=== PATIENT | female | born 1960 | race Caucasian/White ===

== ENCOUNTER → 2017-05-02 | Outpatient (CLI) | payer BC ==
[~2017-05-02] MED LIST: ASPIRIN81 M1 PO; FISH OIL500 M1 PO; LIPITOR PO; MULTI-DAY VITAM1 TAB PO; NORVASC PO; SYNTHROID112 MCG PO
--- NOTE | ~2017-05-02 | MY29 ---
[facility] A Service of [facility] RADIOLOGY TEXT RESULTS PATIENT: VANNESA PIMENTEL LOCATION: [facility] : 62 UNIT #: [id number] AGE: [address]: Rich Carr MD SEX: F ORDER DR: [id number] [facility]. [place], [place] [address] [id number] O MR#: [id number] #: [id number] NAME: VANNESA PIMENTEL : 1960 SEX: F STUDY DATE/TIME: 05/02/2017 7:58 UNIT: [facility] ROOM: STUDY DESCRIPTION: [facility] SCREENING W/ CAD BILAT Attending Physician: Rich Carr M.D. Referring Physician: Rich Carr M.D. Ordering Physician: Rich Carr M.D. Primary Care Physician: Rich Carr M.D. MEDICAL IMAGING REPORT This report is preliminary unless electronic signature is present EXAM Bilateral digital screening mammogram with CAD HISTORY Routine screening. No current complaints. No family history of breast cancer. COMPARISON 04/29/2016, 02/06/2015. FINDINGS MLO and CC views of each breast were obtained. The exam was reviewed with an FDA approved CAD device. There are scattered fibroglandular densities. There are no masses or abnormal calcifications. IMPRESSION No change. No evidence of malignancy. Patients over the age of 40 are entered into a reminder system with target due date for the next mammogram. A result letter will also be sent to the patient. BIRADS: 1 Negative Dictated by... Clarence Joel M.D. THIS IS AN ELECTRONICALLY VERIFIED REPORT Clarence Joel M.D. at 05/02/2017 3:17 PM MAYRA/virgen TD: 05/02/2017 13:38 [facility] A Service [facility] RADIOLOGY TEXT RESULTS PATIENT: VANNESA PIMENTEL LOCATION: [facility] : 62 UNIT #: [id number] AGE: [address]: Rich Carr MD SEX: F ORDER DR: JOB #: [id number] MEDICAL IMAGING REPORT Page 1 of 1 COPY
== END | disposition home or self-care (01) ==
LOC: CWCC 05-01 07:30
DX: Z12.31 Encounter for screening mammogram for malignant neoplasm of breast (principal)
CPT/HCPCS: G0202